=== PATIENT | female | born 1955 | race Caucasian/White ===

== ENCOUNTER 2017-11-08 09:02 | Emergency (ER) | payer OTHER ==
[~2017-11-08] VITALS: Ht 162.6 cm; Wt 86.0 kg
[2017-11-08] MEDS ORDERED: KETOROLAC 30MG/ML VIAL IM ONE (11:00)
[2017-11-08 11:16] VITALS: BP 121/79
== END 2017-11-08 12:34 | disposition home or self-care (01) ==
LOC: ER 09:13
DX: M75.51 Bursitis of right shoulder (principal); E78.00 Pure hypercholesterolemia, unspecified
CPT/HCPCS: 73030; 81025; 96372; 99284; J1885; A4565